=== PATIENT | female | born 1970 | race Caucasian/White ===

== ENCOUNTER 2018-11-30 12:27 | Emergency (ER) | payer MEDICAID, OTHER ==
--- NOTE | 2018-11-30 13:08 | ED Physician Documentation ---
PD HPI LOWER EXT INJURY - Stated complaint Stated Complaint: L LEG BUG BITES - Chief complaint Chief Complaint: Wound - History obtained from History obtained from: Patient - History of Present Illness PD HPI LOW EXT INJURY LOCATION: Left, Lower leg Type of injury: Other (possible spider bite) Where injury occurred: Home Timing - onset: How many days ago (4) Timing - details: Abrupt onset Pain level max: 10 Improved by: Nothing Associated symptoms: Numbness Similar symptoms before: Has not had sx before Recently seen: Not recently seen - Additional information Additional information: A 48-year-old woman who presents with combines that she was bitten by a black spider 4 days ago when she was pulling her yoga pants on in the morning. She felt this weird sensation along the left leg like she was getting bitten so she smashed it and went on about her day. She never actually saw the spider but that night she was having pain in the medial aspect of the Left lower leg right where she felt like she had been bitten. She got up and put compressive pants on and that actually did seem to make it feel a little bit better but since then the pain really is not getting any better and the numbness in the leg is actually worsening. Pain seems to be worse at night. She has not noticed any swelling of the leg, redness. She did see what she thought might be too little finger bites. Pain has also spread to encompass more of the lower leg but also along the lateral aspect of the left thigh from the buttock. Denies history of back injury although her and her have both been a little sick she had a recent cold with stuffy nose a lot of coughing very fatigued. She member sitting on the couch in awkward position and coughing just continuously so she thought that this could possibly be related to her back when it first started. She has had no fever, nausea or vomiting. She has very minimal abdominal pain. She seen no rash. Denies history of shingles. Also of note her and her traveled out of town to [place] just returning home about 11 days ago by plane. 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 Review of Systems Constitutional: reports: Fatigue. denies: Fever Nose: reports: Congestion Respiratory: reports: Cough GI: denies: Abdominal Pain, Nausea, Vomiting Skin: denies: Rash Musculoskeletal: reports: Extremity pain. denies: Back pain, Extremity swelling Neurologic: reports: Numbness. denies: Generalized weakness PD PAST MEDICAL HISTORY - Past Medical History Past Medical History: No - Past Surgical History Past Surgical History: No - Present Medications Home Medications: Ambulatory Orders Medication Instructions Recorded Confirmed SUMAtriptan [Imitrex] 25 mg PO ONCE PRN 11/30/18 11/30/18 traMADol [Ultram] 50 mg PO Q4-6H #6 tablet 11/30/18 - Allergies Allergies/Adverse Reactions: Allergies Allergy/AdvReac Type Severity Reaction Status Date / Time No Known Drug Allergies Allergy Verified 11/30/18 12:37 - Social History Does the pt smoke?: No Smoking Status: Never smoker Does the pt drink ETOH?: No Does the pt have substance abuse?: No - Immunizations Immunizations are current?: Yes - POLST Patient has POLST: No PD ED PE NORMAL - Vitals Vital signs reviewed: Yes - General General: Alert and oriented X 3, No acute distress, Well developed/nourished - HEENT HEENT: Atraumatic, PERRL - Cardiac Cardiac: RRR, Strong equal pulses, Other (2+ dorsalis pedis pulses bilaterally.) - Respiratory Respiratory: No respiratory distress - Derm Derm: Normal color, Warm and dry, No rash, Other (No rash noted on her lower back or along the gluteus or leg.) - Extremities Extremities: No deformity, No tenderness to palpate, No edema - Neuro Neuro: Alert and oriented X 3, 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 Left quadricep reflex is only 1+. I am unable to elicit Achilles reflexes bilaterally. Sensation is subjectively diminished along the medial aspect of the lower leg. Sensation intact across the dorsal aspect of the left foot.) - Psych Psych: Normal mood, Normal affect Results - Vitals Vitals: Vital Signs - 24 hr 11/30/18 12:34 Temperature 36.8 C Heart Rate 87 Respiratory 16 Rate Blood Pressure 136/91 H O2 Saturation 100 Oxygen O2 Source Room air PD MEDICAL DECISION MAKING - ED course Complexity details: d/w patient, d/w family ED course: Discussed with the patient I do not see any indication that this was an envenomation with a black spider and I would expect that if it was the symptoms would already be cleared. She certainly does not have any autonomic instability to suggest a significant envenomation. I believe this is a nerve impingement probably L3-L4 area and that fits with her recent history. Recommended anti-inflammatory medications, have provided a prescription for 6 tramadol tablets so that she can get comfortable at night to sleep. She is provided gentle stretching exercises and instructed to ice the lower back and be careful about excess activity and not to be too sedentary. Follow-up with her primary care provider if her symptoms persist or if things are worsening. She states understanding. Departure - Departure Disposition: Home, Self Care Clinical Impression: Radiculopathy Qualifiers: Spinal region: lumbar Qualified Code(s): M54.16 - Radiculopathy, lumbar region Condition: Good Instructions: ED Sciatica, ED Back Care Tips, Exercises Back Lower Back Stretch Follow-Up: [facility] [Provider Group] Prescriptions: traMADol [Ultram] 50 mg PO Q4-6H #6 tablet Comments: Do back stretching exercises. Ice the lower back. Take naproxen or ibuprofen [id number] on a daily basis for the next 7 to 10 days. Take tramadol at night if needed to help get comfortable to sleep. Follow-up with your primary care provider if you are not improving in the next couple of months or sooner if the pain is worsening. Follow-up for reevaluation if you develop a rash.
[2018-11-30 13:22] VITALS: BP 130/88
== END 2018-11-30 13:20 | disposition home or self-care (01) ==
LOC: ED 12:27
DX: M54.16 Radiculopathy, lumbar region (principal)
CPT/HCPCS: 99281; 99284

== ENCOUNTER 2018-12-17 11:22 | Outpatient (CLI) | payer OTHER ==
--- NOTE | 2018-12-17 12:16 | Mammography Report ---
Reason: ROUTINE MAMMO Procedure Date: 12/17/2018 Accession Number: [id number] / [id number] Procedure: MGS - Screening Mammo Dig Bilat CPT Code: FULL RESULT: EXAM: Screening Mammo Dig Bilat DATE: 12/17/2018 11:43 AM CLINICAL HISTORY: Routine screening. No reported personal or family history of breast cancer. TECHNIQUE: (B) - Bilateral CC and MLO views were obtained. COMPARISON: 12/01/2013 PARENCHYMAL PATTERN: (A) - The breasts demonstrate scattered fibroglandular densities bilaterally. FINDINGS: Bilateral breasts: There are no suspicious masses, calcifications, or areas of distortion. IMPRESSION: Negative examination. BI-RADS category 1. RECOMMENDATION: (ANNUAL) - Recommend routine annual screening mammography. BI-RADS CATEGORY: (1) - Negative. STANDARD QUALIFYING STATEMENTS: 1. This examination was reviewed with the aid of Computer-Aided Detection (CAD). 2. A negative or benign imaging report should not preclude biopsy if clinically suspicious findings are present. 3. Dense breasts may obscure an underlying neoplasm. 4. This examination was reviewed without the aid of 3D breast imaging (tomosynthesis).
== END 2018-12-17 11:23 | disposition home or self-care (01) ==
LOC: DI.S 11:22
DX: Z12.31 Encounter for screening mammogram for malignant neoplasm of breast (principal)
CPT/HCPCS: 77067

== ENCOUNTER 2021-01-18 11:05 | Outpatient (CLI) | payer BC ==
[2021-01-18 14:40] LABS: ABSOLUTE RETICS # AUTO 0.058 10^6/uL (0.020-0.110); BASOPHILS # (AUTO) 0.1 10^3/uL (0.0-0.1); BASOPHILS % (AUTO) 1.1 %; EOSINOPHILS # (AUTO) 0.2 10^3/uL (0.0-0.7); EOSINOPHILS % (AUTO) 1.9 %; HCT - HEMATOCRIT 43.9 % (37.0-47.0); HGB - HEMOGLOBIN 13.7 g/dL (12.0-16.0); LYMPHOCYTES # (AUTO) 3.1 10^3/uL (1.5-3.5); LYMPHOCYTES % (AUTO) 38.8 %; MEAN CORPUSCULAR HEMOGLOBIN 30.4 pg (27.0-31.0); MEAN CORPUSCULAR HGB CONC 31.2 g/dL (32.0-36.0); MEAN CORPUSCULAR VOLUME 97.6 fL (81.0-99.0); MEAN PLATELET VOLUME 11.5 fL (7.9-10.8); MONOCYTES # (AUTO) 0.6 10^3/uL (0.0-1.0); MONOCYTES % (AUTO) 7.6 %; NEUTROPHILS # (AUTO) 4.1 10^3/uL (1.5-6.6); NEUTROPHILS % (AUTO) 50.2 %; PLT - PLATELET COUNT 270 10^3/uL (130-450); RED CELL DISTRIBUTION WIDTH 13.2 % (12.0-15.0); RETICULOCYTE COUNT % (AUTO) 1.28 % (0.5-2.3); WHITE BLOOD COUNT 8.1 x10^3/uL (4.8-10.8)
[2021-01-18 15:14] LABS: % IRON SATURATION 34 % (20-50); ALBUMIN 4.5 g/dL (3.2-5.5); ALBUMIN/GLOBULIN RATIO 1.7 (1.0-2.2); ALKALINE PHOSPHATASE 60 IU/L (42-121); ALT ALANINE AMINOTRANSFERASE 31 IU/L (10-60); AST ASPARTATE AMINOTRANSFERASE 30 IU/L (10-42); BILIRUBIN,TOTAL 0.6 mg/dL (0.2-1.0); BUN - BLOOD UREA NITROGEN 13 mg/dL (6-20); CALCIUM 9.8 mg/dL (8.5-10.3); CARBON DIOXIDE - CO2 26 mmol/L (21-32); CHLORIDE 101 mmol/L (101-111); CHOL/HDL RATIO 2.6 (<4.4); CHOLESTEROL 222 mg/dL; CREATININE 0.7 mg/dL (0.4-1.0); GFR - MDRD 88 (>89); GLUCOSE 98 mg/dL (70-100); HDL CHOLESTEROL 86 mg/dL; IRON 134 ug/dL (28-170); LDL CHOLESTEROL,CALCULATED 112 mg/dL; LDL/HDL RATIO 1.3 (<4.4); POTASSIUM 3.9 mmol/L (3.5-5.0); SODIUM 141 mmol/L (135-145); TOTAL IRON BINDING CAPACITY 391 ug/dL (250-450); TOTAL PROTEIN 7.2 g/dL (6.7-8.2); TRANSFERRIN 279 mg/dL (192-382); TRIGLYCERIDES 119 mg/dL; VLDL CHOLESTEROL 24 mg/dL
[2021-01-18 15:27] LABS: THYROID STIMULATING HORMONE 2.27 uIU/mL (0.34-5.60)
[2021-01-18 15:34] LABS: FERRITIN 37.4 ng/mL (11.0-306.8)
[2021-01-18 15:38] LABS: FOLATE 7.06 ng/mL (5.90 - >24.8)
== END 2021-01-18 11:06 | disposition home or self-care (01) ==
LOC: LAB.S 11:05
PROVIDERS: ATTEND Registered Nurse
DX: D64.9 Anemia, unspecified (principal); Z13.228 Encounter for screening for other metabolic disorders; Z13.220 Encounter for screening for lipoid disorders; Z13.29 Encounter for screening for other suspected endocrine disorder
CPT/HCPCS: 36415; 80053; 80061; 82607; 82728; 82746; 83540; 83721; 84443; 84466; 85025; 85045

== ENCOUNTER 2023-08-28 09:56 | Outpatient (CLI) | payer BC ==
--- NOTE | 2023-08-29 10:33 | Mammography Report ---
BILATERAL DIGITAL SCREENING MAMMOGRAM 3D/2D: 08/28/2023 CLINICAL: Routine screening. Comparison is made to exams dated: 12/17/2018 mammogram and 12/01/2013 mammogram - [facility]. There are scattered areas of fibroglandular density in both breasts (category b / 25%-50% glandular t issue). No significant masses, calcifications, or other findings are seen in either breast. There has been no significant interval change. IMPRESSION: NEGATIVE There is no mammographic evidence of malignancy. A 1 year screening mammogram is recommended. Based on the Tyrer Cuzick model (a risk assessment model) the patient's lifetime risk is 7.9% and her 10 year risk is 2.4%. According to the ACR, ACS, and NCCN guidelines, an annual breast MRI exam marichuy g with mammogram is recommended if the patient's lifetime risk is 20% or greater. This exam was interpreted at Station ID: [id number]. NOTE: For mammograms, a report in lay terms will be sent to the patient. Approximately 15% of breast malignancies will not be visualized mammographically. In the management of a palpable breast mass, a negative mammogram must not discourage biopsy of a clinically suspicious lesion. Electronically Signed By: Sabi eagle/katie:08/28/2023 14:54:17 letter sent: No_Letter ACR BI-RADS Category 1: Negative 3341F PARENCHYMAL PATTERN: (A) - The breast(s) demonstrate(s) scattered fibroglandular densities. BI-RADS CATEGORY: (1) - 1 RECOMMENDATION: (ANNUAL) - Recommend routine annual screening mammography. [id number] 1 year screening LATERALITY: (B)
== END 2023-08-28 09:57 | disposition home or self-care (01) ==
LOC: DI.S 09:56
PROVIDERS: ATTEND Nurse Practitioner
DX: Z12.31 Encounter for screening mammogram for malignant neoplasm of breast (principal); R92.323 Mammographic fibroglandular density, bilateral breasts